=== PATIENT | male | born 1975 | race Caucasian/White ===

== ENCOUNTER 2016-08-23 15:49 | Emergency (ER) | payer OTHER ==
[~2016-08-23] VITALS: Wt 110.0 kg
[2016-08-23] MEDS ORDERED: HYDROCODONE/APAP (5/325) TAB PO ONE (17:00)
[2016-08-23] MEDS ORDERED: DIPHTH/TET/ACEL PERTUSS (ADULT) 0.5 ML VIAL IM* ONE (17:00)
[2016-08-23] MEDS ORDERED: CEPHALEXIN 500 MG CAP PO ONE (17:00)
[2016-08-23] MEDS ORDERED: CEPH-443 PO (17:27)
[2016-08-23] MEDS ORDERED: ACET1TAB40 PO (17:27)
--- NOTE | 2016-08-23 17:29 | RADRPT ---
PROCEDURE: XR finger. CLINICAL INDICATION: Laceration of the left middle finger. TECHNIQUE: Three views of the left third digit. COMPARISON: No. FINDINGS: There are no fractures or dislocations. There is soft tissue swelling in the distal left third finge r with disruption of the skin line from a laceration. No radiopaque foreign body is identified. IMPRESSION: No evidence of an acute fracture, foreign body or dislocation involving the left middle finger. RPTAT:AAJJ Physician Najma Date Time Electronically viewed and signed by Oscar Welch Physician on 08/23/2016 17:29 ROSALIND/
--- NOTE | 2016-08-23 17:30 | ERD ---
ER Documentation Chief Complaint Date/Time DATE: 08/23/16 TIME: 17:28 Chief Complaint LEFT 3RD FINGER INJURY HPI His 5-year-old male complains of left middle finger pain and bleeding after hitting the tip with a skill saw. He has no restricted range of motion weakness and his tetanus is not up-to-date. ROS All systems reviewed and are negative except as per history of present illness. Medications Home Meds Active Scripts Cephalexin* (Keflex*) 500 Mg Capsule, 500 MG PO QID for 5 Days, CAP Prov:ERIC EMERY MD 08/23/16 Acetaminophen with Codeine (Acetaminophen-Cod #3 Tablet) 1 Each Tablet, 1 TAB PO Q6H Y for PAIN, #12 TAB Prov:ERIC EMERY MD 08/23/16 Allergies Allergies: Coded Allergies: No Known Allergy (Unverified , 08/23/16) PMhx/Soc Medical and Surgical Hx: pt denies Medical Hx, pt denies Surgical Hx Hx Alcohol Use: No Hx Substance Use: No Hx Tobacco Use: No Smoking Status: Never smoker Physical Exam Vitals Vital Signs Date Time Temp Pulse Resp B/P Pulse Ox O2 Delivery O2 Flow Rate FiO2 08/23/16 15:55 98.7 103 18 145/74 99 Physical Exam Const: [] Alert, [id number]. Head: Atraumatic Eyes: Normal Conjunctiva ENT: Normal External Ears, Nose and Mouth. Neck: Full range of motion..~ No meningismus. Resp: Clear to auscultation bilaterally Cardio: Regular rate and rhythm, no murmurs Abd: Soft, non tender, non distended. Normal bowel sounds Skin: No petechiae or rashes. There is an avulsion approximately 1 cm x 0.5 cm on the pad of the left middle finger. There is no appreciable deformity no exposed bone. There is active bleeding. Back: No midline or flank tenderness Ext: No cyanosis, or edema Neur: Awake and alert Psych: Normal Mood and Affect Results 24 hrs Current Medications Medications (Trade) Dose Ordered Sig/[place]on Route PRN Reason Start Time Stop Time Status Last Admin Dose Admin Diphtheria/ Tetanus/Acell Pertussis (Adacel) 0.5 ml ONCE ONCE IM* 08/23/16 17:00 08/23/16 17:01 DC Acetaminophen/ Hydrocodone Bitart ([place] (5/325)) 1 tab ONCE ONCE PO 08/23/16 17:00 2 17:01 DC Cephalexin (Keflex) 500 mg ONCE ONCE PO 08/23/16 17:00 2 17:01 DC Procedures/MDM X-ray left middle finger 2V Interpreted by me: Bones: [No fracture] Joints: [No dislocation] Foreign body: [None]. Impression-normal left middle finger x-ray Procedure note-the left middle finger laceration or tip avulsion was irrigated copiously with normal saline. 2 cc of lidocaine was used for local infiltration. 3 4-0 and 2 3-0 nylon sutures were used to reapproximate the wound. Hemostasis was obtained, the wound was dressed patient tolerated procedure well. Patient was discharged home with a prescription of Tylenol 3 and Keflex instructions for wound check in 2 days and suture removal in 10-14 days. There is no signs or symptoms to suggest fracture, dislocation, tendon or neurologic deficit or bacterial infection. Departure Diagnosis: Primary Impression: Laceration of finger Encounter type: initial encounter Qualified Code: S61.219A - Laceration of finger, initial encounter Condition: Stable Patient Instructions: Laceration, Hand Additional Instructions: X-ray normal. cheque 2 leahy para cheque para infeccion. cheque 10-14 leahy para saca los puntos / grapas. ERIC EMERY MD Aug 23, 2016 17:30
== END 2016-08-23 17:52 | disposition home or self-care (01) ==
LOC: FTE 15:49
DX: S61.213A Laceration without foreign body of left middle finger without damage to nail, initial encounter (principal); W29.8XXA Contact with other powered hand tools and household machinery, initial encounter; Y92.9 Unspecified place or not applicable; Z23 Encounter for immunization
CPT/HCPCS: 73140; 90471; 90715